=== PATIENT | male | born 1965 | race Caucasian/White ===

== ENCOUNTER 2024-05-03 10:09 | Observation (INO) | payer BC, SELFPAY ==
[2024-05-03] VITALS (8 sets, daily range): BP systolic 111–161; BP diastolic 58–78; PULSE 62–80; RESP 18–24; TEMP 36–36.8; O2SAT 93–98; BMI 35.1
--- NOTE | ~2024-05-03 | CT_ITS ---
EXAMINATION: CTA NECK WITH CONTRAST (STROKE) CTA HEAD WITH CONTRAST (STROKE) CLINICAL INFORMATION: Stroke protocol. COMPARISON: Concurrent CT scan of the head 05/03/2024. TECHNIQUE: Test bolus series followed by intravenous administration 70 mL of Isovue-370. Helical imaging was performed in the axial plane from the mediastinum to the skull vertex. The degree of stenosis is based off NASCET criteria. The data was processed at the mechanical technologist workstation for generation of MIP images. Three-dimensional volume rendered reformatted images were also generated at an offline 3-D workstation. This CT examination was performed using dose optimization techniques as appropriate, variously including the following: *Automated exposure control *Adjustment of mA and/or kV according to patient size (this includes techniques or standardized protocols for targeted exams where dose is matched to indication/reason for exam; i.e. extremities or head) *Use of iterative reconstruction technique DLP: 1389 mGy-cm. FINDINGS: CT Head: There is an area of low-attenuation in the anterior limb of the right internal capsule, demonstrated on the prior study, which may be consistent with an age-indeterminate infarct. No definite abnormal attenuation is seen in the jacquelin. There is no evidence of acute intracranial hemorrhage. No abnormal mass-effect or midline shift is seen. Duncan to white matter differentiation is well preserved. No extra-axial fluid collections are identified. There is no abnormal enhancement. The ventricles and sulci are normal in size. The osseous structures and soft tissues are normal. The mastoid air cells and visualized portions of the paranasal sinuses are well-aerated. CTA Neck: There is a classic configuration of the aortic arch. There are mild atheromatous ossifications of the arch. The origins of the great vessels of the neck are well-demonstrated and are patent. The common carotid arteries are patent with mild atheromatous change. There are mild atheromatous calcifications at the carotid bifurcations bilaterally without flow-limiting stenosis. Both cervical internal carotid arteries are patent. The origins of the vertebral arteries are well-demonstrated. Both vertebral arteries are patent throughout their cervical course extending intradurally. The left vertebral artery is dominant. Nonvascular: The visualized upper lung borrero are well-aerated. The thyroid gland demonstrates an equivocal 6 mm area of low density in the right lobe of the thyroid gland (image 87/111, series 5), which does not need further imaging evaluation. There is no cervical lymphadenopathy. There is no significant spondylosis or facet arthropathy. There are multiple carious teeth in the mandible and the maxilla. The nasal septum is deviated to the left with a prominent left-sided bony nasal septal spur. There is slight increased attenuation in the right malar soft tissues compared to the left, which is nonspecific. CTA Head: There are minimal atheromatous calcifications of the cavernous internal carotid arteries, without significant stenosis. There is a 3.7 mm aneurysm at the anterior communicating artery, extending superiorly (image 291/563, series 502 and image 258/[id number], series 6). The middle and anterior cerebral arteries bilaterally demonstrate normal caliber with no evidence of focal stenosis, aneurysm or vascular malformation. There is normal arborization of the middle cerebral artery branches. In the posterior circulation, the left vertebral artery is dominant. There is slight irregular caliber of the proximal right intradural vertebral artery, but the vessel is patent. The basilar artery appears normal. The posterior cerebral arteries have normal caliber. The venous sinuses opacify normally. CT/CT angio head neck stroke IMPRESSION: 1. There is an area of low-attenuation in the anterior limb of the right internal capsule, which may be consistent with an age-indeterminate infarct. This could be further evaluated with MRI scan of the brain. 2. There is no evidence of acute intracranial hemorrhage. There is no abnormal mass-effect or midline shift. 3. There is no abnormal enhancement. 4. There are mild atheromatous calcifications at the carotid bifurcations without flow-limiting stenosis. 5. There is a 3.7 mm aneurysm extending superiorly off anterior communicating artery. Recommend BERNARDINO or neurosurgical consult. 6. This critical result was discussed with Mauro Pastor by telephone on 05/03/2024 at 11:10 AM and it was ascertained that the content and urgency of the report was understood at the time of direct communication.
--- NOTE | ~2024-05-03 | MR_ITS ---
EXAMINATION: MR BRAIN WITHOUT CONTRAST CLINICAL INFORMATION: Transient ischemic attack versus cerebrovascular accident. COMPARISON: CT angiogram of the head and neck 05/03/2024. TECHNIQUE: MRI of the brain was obtained using routine sequences without contrast. FINDINGS: There are scattered nonspecific foci of T2 FLAIR signal hyperintensity within the periventricular white matter. No acute territorial infarct. No pathological magnetic susceptibility artifact. Intracranial vascular flow voids are maintained. There is no intracranial mass effect or midline shift. No abnormal extra-axial collection. Lateral and third ventricles are normal. No hydrocephalus. Midline structures including the cervicomedullary junction are normal. No acute bone marrow signal changes. There is a small left mastoid tip effusion. Mild paranasal sinus disease primarily affecting the ethmoid air cells. Globes and orbits are symmetric. Although only partially included within the [id number] of this examination there is a nodular lesion located within the superficial lobe of the right parotid gland measuring 1.3 cm in diameter best visualized on axial image of series 4. MR/MR head/brain wo con IMPRESSION: There are a few scattered chronic small vessel ischemic changes within the periventricular white matter. No evidence of acute territorial infarct or hemorrhage. Although only partially included within the [id number] of this examination there is a 1.3 cm nodular lesion located within the superficial lobe of the right parotid gland that may represent a cyst, enlarged intraparotid lymph node, or a primary parotid neoplasm.
--- NOTE | ~2024-05-03 | CT_ITS ---
EXAMINATION: CT HEAD WITHOUT CONTRAST (STROKE PROTOCOL) CLINICAL INFORMATION: Stroke protocol. Left arm and leg numbness and heaviness. COMPARISON: None available. TECHNIQUE: Contiguous axial imaging was performed from the skull base to vertex without intravenous administration of contrast. This CT examination was performed using dose optimization techniques as appropriate, variously including the following: *Automated exposure control *Adjustment of mA and/or kV according to patient size (this includes techniques or standardized protocols for targeted exams where dose is matched to indication/reason for exam; i.e. extremities or head) *Use of iterative reconstruction technique DLP: 607 mGy-cm FINDINGS: No intracranial hemorrhage, extra-axial surface collection, focal mass effect or midline shift. Atherosclerotic calcification of cavernous carotid arteries. The area of hypoattenuation in the deep right frontal white matter involving region of anterior limb of internal capsule could represent an acute or subacute infarction. The cody-white matter differentiation of the brain is maintained. At the posterior fossa, there appears to be a small area of slightly decreased attenuation within the left jacquelin but this might be artifactual. It is difficult to exclude a subtle pontine infarct on this examination. The cerebellar hemispheres are normal. The calvarium is intact. Mild mucosal thickening of the anterior wall of the left sphenoid sinus and opacification of left posterior ethmoid air cell. No air-fluid levels within paranasal sinuses. The visualized portions of the orbits and temporomandibular joints are unremarkable. CT/CT head for stroke IMPRESSION: An area of decreased attenuation involving the anterior limb of the right internal capsule could represent an acute infarction. Also, note that it is difficult to exclude any small left pontine infarction on this examination. There is no intracranial hemorrhage. This critical result was discussed with Traci Pastor at 10:36 AM on 05/03/2024. It was ascertained that the content and urgency of the report was understood at the time of direct communication.
--- NOTE | 2024-05-03 10:19 | ED.NEUROSD ---
HPI - Neuro Symptoms/Deficit General Chief Complaint: Stroke Stated Complaint: L arm numbness Time Seen by Provider: 05/03/24 10:19 Source: patient Mode of arrival: ambulatory Limitations: no limitations History of Present Illness ED Provider: Dr. Mauro Pastor HPI Narrative: 58-year-old male with a history of diabetes mellitus, hypertension, known brain aneurysm who presents emergency department for evaluation of intermittent stroke-like symptoms x2 days. Patient states that yesterday at around 08:00 hours he developed tingling in his and weakness in his left arm and left leg. He states his left arm felt heavy. He states the symptoms lasted approximately 2 minutes. He states that 1 hour later he then developed similar symptoms which again lasted minutes and resolved. This morning he states that around 0 900 hours his symptoms returned and lasted minutes. He then had a 2nd episode at 09:00 hours with left arm and leg tingling this and weakness with a heavy sensation in his left arm. He also felt dizzy and lightheaded therefore he came to the emergency department for evaluation. The patient states that 5 or 6 years prior he did have difficulty with his vision and was seen at [facility]. He had a workup which revealed a an aneurysm in his brain which she states was too small to be repaired. Patient denied being ill in any other way prior to coming to the emergency department. He denied fever, chills, chest pain, shortness of breath, nausea, vomiting or diarrhea. Related Data Allergies Allergy/AdvReac Type Severity Reaction Status Date / Time No Known Allergies Allergy Verified 05/03/24 10:16 Review of Systems Review of Systems: Yes all other systems are reviewed and are negative [facility] Past Medical History [facility] Narrative: Social history: The patient denies tobacco use. He states he does drink on the weekends and that he will drink anywhere from 10-12 alcoholic beverages per day over the weekend. He denies drug use Social History Social History Advance Directives: No Advance Directives Information Provided: No Do you have a plan to hurt others: No Plan Physical Exam Vital Signs: Vital Signs: Last Vital Signs Temp 98 F 05/03/24 10:14 Pulse 72 05/03/24 10:55 Resp 24 H 05/03/24 10:55 BP 111/60 05/03/24 10:55 Pulse Ox 96 05/03/24 10:55 O2 Del Method Room Air 05/03/24 10:55 BMI result Body Mass Index 35.1 Vital signs revealed an elevated respiratory rate of 20 Exam: General: Awake, alert in no distress Head: Normocephalic, atraumatic EENT: PERRL, Lids normal, sclera normal, conjunctiva normal, nose normal , ears normal, throat without erythema or exudates Neck: Supple, no adenopathy Lung: breath sounds symmetric, no wheezing, rales or rhonchi Chest: symmetric movement, nontender Heart: regular rate and rhythm, normal S1, S2 no murmurs or rubs Abdomen: soft, non-tender, nondistended, normal bowel sounds Back: no vertebral tenderness, no CVAT Extremities: no deformities, moves all extremities symmetrically Neuro: Awake, alert, oriented, normal speech, cranial nerves intact, moves all extremities symmetrically Psych: Pleasant, cooperative Medications Administered Discontinued Medications Generic Name Dose Route Start Last Admin Trade Name Freq PRN Reason Stop Dose Admin Iohexol 100 ml 05/03/24 10:40 05/03/24 10:41 Iohexol 350 Mg/Ml 100 Ml Infus..Btl IV 05/03/24 10:41 70 ml ONCE ONE Administration Medical Decision Making Medical Decision Making MDM Narrative: 58-year-old male with a history of diabetes mellitus, hypertension, known brain aneurysm who presents emergency department for evaluation of intermittent stroke-like symptoms x2 days. Patient had 2 brief episodes yesterday at 08:00 hours of left arm and leg numbness with heaviness in the left arm. He also had 2 episodes today at 09:00 hours which were again brief and then resolved completely. Patient's physical examination was unremarkable in his NIH stroke scale was 0. Differential diagnosis: ?Includes but is not limited to intracerebral bleed, stroke, TIA, complex migraine, electrolyte abnormalities, anemia Following evaluation was ordered: Stroke protocol Course: 11:39 My interpretation patient's laboratory evaluation as follows: Elevated white blood count 15,000 normocytic anemia with an H&H of 11.6 and 34.1. Platelet count was normal 369,000. Stroke INR was 1.1. Potassium elevated 5.3 CO2 low 19 BUN creatinine elevated 35 and 1.77-no old values for comparison. Glucose 126. Lipid profile revealed elevated triglycerides 245, elevated cholesterol 212, elevated LDL [address] scan of the head revealed decreased attenuation involving the anterior limb of the right internal capsule which could represent an acute versus subacute infarct. CT angiogram of the head and neck did not reveal any critical stenosis, large vessel occlusions, or acute intracranial hemorrhage. There was a 3.7 mm aneurysm of the anterior communicating artery. I did discuss this finding with the neuroradiologist and he stated the aneurysms usually less than 5 mm and not repaired however would be important that the patient gets neurosurgical follow-up to discuss this finding. I did discuss the patient's presentation with our covering neurologist, Dr. An who recommended that the patient be admitted to the hospitalist service for further evaluation for possible acute stroke. I did order aspirin 162 mg orally. I did discuss the patient's presentation over tiger text with the covering hospitalist, Dr. Montes De Oca patient will be admitted for further management. Admission/Observation Consideration of admission/observation: Escalation of care including admission/observation considered Lab Data 05/03/24 10:22 05/03/24 10:22 Labs: Lab Results 05/03/24 05/03/24 Range/Units 10:22 10:23 WBC 15.0 H (4.8-10.8) X10*3/uL RBC 4.26 L (4.60-5.80) X10*6/uL Hgb 11.6 L (14.0-18.0) g/dl Hct 34.1 L (42.0-52.0) % MCV 80.0 (80.0-98.0) fL MCH 27.2 (27.0-33.0) pg MCHC 34.0 (31.0-36.0) g/dl RDW 15.4 (11.0-16.0) % Plt Count 369 (160-400) X10*3/uL MPV 9.3 L (9.4-12.4) fL Immature Gran % (Auto) 0.9 H (0.0-0.4) % Neut % (Auto) 81.1 H (45-73) % Lymph % (Auto) 10.4 L (20-40) % [place] % (Auto) 6.9 (2-11) % Eos % (Auto) 0.4 (0-4) % Baso % (Auto) 0.3 (0-2) % Lymph # (Auto) 1.6 (1.2-4.9) X10*3/uL [place] # (Auto) 1.0 (0.1-1.2) X10*3/uL Eos # (Auto) 0.1 (0.0-0.4) X10*3/uL Baso # (Auto) 0.1 (0.0-0.2) X10*3/uL Abs Immat Gran (auto) 0.14 H (0.00-0.03) X10*3/uL Absolute Neuts (auto) 12.1 H (2.0-8.3) x10*3/uL Absolute Nucleated RBC 0.000 (0.0-0.012) X10*3/uL Nucleated RBC % (auto) 0.0 (0.0-0.2) /100WBC PT 12.0 (11.1-13.3) SEC INR 1.0 (0.9-1.1) APTT 30.8 (26.0-36.8) SEC Sodium 135 (135-145) mmol/L Potassium 5.3 H (3.3-5.1) mmol/L Chloride 105 (96-108) mmol/L Carbon Dioxide 19 L (22-29) mmol/L Anion Gap 16 (12-20) BUN 35 H (9-16) mg/dL Creatinine 1.77 H (0.5-1.4) mg/dL Estim Creat Clear Calc 45.1 Estimated GFR 40 POC Glucose 126 H (60-115) mg/dL Random Glucose 118 H (60-115) mg/dL Calcium 9.3 (8.4-10.2) mg/dL Total Bilirubin 0.3 (0.0-1.0) mg/dL Direct Bilirubin 0.1 (0.0-0.5) mg/dL AST 15 (5-37) U/L ALT 16 (0-40) U/L Alkaline Phosphatase 119 H (39-117) U/L Troponin I High Sens 3.2 (<3.5-35.0) ng/L Total Protein 7.8 (6.5-8.0) g/dL Albumin 4.2 (3.5-5.0) g/dL Triglycerides 245 H (<150) mg/dL Cholesterol 212 H (<200) mg/dL LDL Cholesterol, Calc 129 H (<100) mg/dL HDL Cholesterol 34 L (>40) mg/dL Ethyl Alcohol < 10 mg/dL Radiology Impression Discussion of test interpretation with radiology: I have reviewed the radiologist's reading. Radiologist Impression: CT head for stroke IMPRESSION: An area of decreased attenuation involving the anterior limb of the right internal capsule could represent an acute infarction. Also, note that it is difficult to exclude any small left pontine infarction on this examination. There is no intracranial hemorrhage. This critical result was discussed with Traci Pastor at 10:36 AM on 05/03/2024. It was ascertained that the content and urgency of the report was understood at the time of direct communication. Dictated By: Ron Childs MD CT angio head neck stroke IMPRESSION: 1. There is an area of low-attenuation in the anterior limb of the right internal capsule, which may be consistent with an age-indeterminate infarct. This could be further evaluated with MRI scan of the brain. 2. There is no evidence of acute intracranial hemorrhage. There is no abnormal mass-effect or midline shift. 3. There is no abnormal enhancement. 4. There are mild atheromatous calcifications at the carotid bifurcations without flow-limiting stenosis. 5. There is a 3.7 mm aneurysm extending superiorly off anterior communicating artery. Recommend BERNARDINO or neurosurgical consult. 6. This critical result was discussed with Mauro Pastor by telephone on 05/03/2024 at 11:10 AM and it was ascertained that the content and urgency of the report was understood at the time of direct communication. Dictated By: ANGEL LUIS RYAN MD NIH Stroke Scale Internal: Initial- Upon Arrival Level of Consciousness: Alert Level of Consciousness Questions: Answers both questions correctly Level of Consciousness Commands: Performs both tasks correctly Best Gaze: Normal Visual: No visual loss Facial Palsy: Normal Motor Arm (Right): No drift Motor Arm (Left): No drift Motor Leg (Right): No drift Motor Leg (Left): No drift Limb Ataxia: Absent Sensory: Normal Best Language: No aphasia Dysarthia: Normal Extinction and Inattention: No abnormality Score: 0 Critical Care Time Critical Care Time Critical Care Time: Yes Total Critical Care Time: 45 Attestation: Critical Care: The patient was critically ill with a high probability of imminent or life threatening deterioration. I spent greater than 30 minutes of discontinuous time evaluating the patient,delivering critical care at the bedside, discussing and evaluating pertinent data with consultants. Critical care time does not include time spent performing separately billable procedures or teaching. Total time spent performing critical care was 45 minutes. Discharge Plan Discharge Print Language: Cuban
--- NOTE | 2024-05-03 10:20 | ECG_ITS ---
Test Reason : weakness Blood Pressure : / mmHG Vent. Rate : 078 BPM Atrial Rate : 078 BPM P-R Int : 232 ms QRS Dur : 058 ms QT Int : 332 ms P-R-T Axes : -05 008 -11 degrees QTc Int : 378 ms Artifact in tracing Sinus rhythm with 1st degree A-V block Abnormal ECG When compared with ECG of 09-MAR-2010 18:12, ND interval has increased Nonspecific ST and T wave abnormality improved Referred By: Mauro Pastor Electronically Signed By:KG BOWLES
[2024-05-03 10:26] LABS: Glucose, Whole Blood 126 mg/dL (60-115)
[2024-05-03 10:32] LABS: MANUAL DIFF FLAG NO
[2024-05-03 10:33] LABS: Basophils Absolute Auto 0.1 X10*3/uL (0.0-0.2); Basophils Percent Auto 0.3 % (0-2); Eosinophils Absolute Auto 0.1 X10*3/uL (0.0-0.4); Eosinophils Percent Auto 0.4 % (0-4); Hematocrit 34.1 % (42.0-52.0); Hemoglobin 11.6 g/dl (14.0-18.0); Imm Gran Abs Auto 0.14 X10*3/uL (0.00-0.03); Imm Gran Pct Auto 0.9 % (0.0-0.4); Lymphocytes Absolute Auto 1.6 X10*3/uL (1.2-4.9); Lymphocytes Percent Auto 10.4 % (20-40); Mean Corpuscular Hemoglobin 27.2 pg (27.0-33.0); Mean Platelet Volume 9.3 fL (9.4-12.4); Monocytes Percent Auto 6.9 % (2-11); Neutrophils Absolute Auto 12.1 x10*3/uL (2.0-8.3); Neutrophils Percent Auto 81.1 % (45-73); Platelet Count 369 X10*3/uL (160-400); Red Blood Count 4.26 X10*6/uL (4.60-5.80); Red Cell Distribution Width 15.4 % (11.0-16.0)
[2024-05-03] MEDS: iohexoL 350 MG/ML 100 ML INFUS..BTL IV (10:41)
[2024-05-03 10:44] LABS: Partial Thromboplastin Time 30.8 SEC (26.0-36.8)
--- NOTE | 2024-05-03 10:47 | PC.NURSE ---
patient presents to the ED after having left sided weakness multiple times since yesterday, states it only lasts a few seconds at a time, patient neuros intact, pupils perrla. IV placed in the left AC #20, labs drawn and sent.
[2024-05-03 10:52] LABS: Stroke Lab Use COMPLETE
[2024-05-03 11:04] LABS: Alanine Aminotransferase 16 U/L (0-40); Albumin Level 4.2 g/dL (3.5-5.0); Alkaline Phosphatase 119 U/L (39-117); Anion Gap 16 (12-20); Aspartate Amino Transferase 15 U/L (5-37); Bilirubin Direct 0.1 mg/dL (0.0-0.5); Bilirubin Total 0.3 mg/dL (0.0-1.0); Blood Urea Nitrogen 35 mg/dL (9-16); Calcium 9.3 mg/dL (8.4-10.2); Carbon Dioxide 19 mmol/L (22-29); Chloride 105 mmol/L (96-108); Cholesterol 212 mg/dL (<200); Creatinine Clr Calc Pharmacy 45.1; Estimated Glomerular Filt Rate 40; Ethanol < 10 mg/dL; Glucose Random 118 mg/dL (60-115); HDL Cholesterol 34 mg/dL (>40); LDL Cholesterol Calculated 129 mg/dL (<100); Potassium 5.3 mmol/L (3.3-5.1); Sodium 135 mmol/L (135-145); Total Protein 7.8 g/dL (6.5-8.0); Triglycerides 245 mg/dL (<150); Troponin-I High Sensitivity 3.2 ng/L (<3.5-35.0)
--- NOTE | 2024-05-03 11:48 | MHC.STROKE ---
Met with patient after he completed his CT scans. Pt awake, alert and oriented. Answering questions appropriately and following commands. Speech clear. Equal strength to arms/legs bilaterally. Tongue midline. No facial droop noted. Good sensation to all extremities. Pupils reactive- pt reports hx of cataracts. Pt reports that his symptoms have been coming and going for approximately 2 days. Yesterday at 0800 pt reports left foot numbness that traveled into his leg and arm. He reports these symptoms lasted less than 1 minute. He states that he experienced the same symptoms again around 1200. No other symptoms throughout the day and states that he went to bed at approximately 1930 feeling well. Pt states that he was up at 0400 today. At approximately 0730 the symptoms returned and again lasted for a very brief time. At 0830 when the symptoms again returned, the patient reports also feeling dizzy. He was at work at this time and decided that he needed to see a doctor. Pt denies any recent illness. Plan of care discussed with patient. Stroke Education pamphlet provided. All questions answered. Will continue to assist as needed. Dr. An spoke with ED provider regarding this case.
[2024-05-03] MEDS: Aspirin 81 MG TAB.CHEW 162 MG PO (11:55)
[2024-05-03] MEDS: 0.9 % Sodium Chloride 1,000 ML 999 ML IV (11:55)
--- NOTE | 2024-05-03 12:25 | PM.IMHP ---
History of Present Illness Date of Service: 05/03/24 Attending physician on admission: Too Thompson Chief Complaint: Intermittent left-sided weakness and heaviness Pt is a 58-year-old male with a PMH significant for?HTN, insulin-dependent type 2 diabetes with neuropathy, known aneurysm, CVA in 2019, hx of diabetic foot ulcers s/p left great toe amputation in 10/2023, and right midfoot fusion who presents to the ED with?intermittent stroke-like symptoms for the past 2 days. Patient reports yesterday morning experienced numbness and tingling in his left arm and leg that lasted less than 30 seconds. In the afternoon symptoms returned and lasted slightly longer, maybe 30-45 seconds. Patient reports he was able to ?walk it off?. Experienced another episode of left-sided numbness and tingling at work this morning at 07:30 that lasted approximately 30 seconds. At 08:30 left-sided numbness and weakness returned and was accompanied by lightheadedness, dizziness, and left-sided weakness and heaviness. Patient called his PCP who told him to come to the ED for further evaluation. Patient denies any other acute medical complaints. No headache or acute vision changes. Denies dysarthria, word finding, or facial droop. Denies chest pain/pressure, palpitations. No shortness a breath or difficulty breathing. Denies fever, chills, nausea, vomiting, abdominal pain. No recent illnesses. In the ED pt's vital signs largely stable and WNL, though with 1 episode of tachypnea of 24 and initially hypertensive at 161/78. Labs were significant for leukocytosis of 15.0, H&H 11.6/34.1, potassium 5.3, BUN 35, creatinine 1.71, and mildly elevated cholesterol levels. CT?of head an area of decreased attenuation involving the anterior limb of the right internal capsule could represent an acute infarction, but no intracranial hemorrhage. Also noted that it was difficult to exclude any small left pontine infarction. 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 EKG demonstrated sinus rhythm with first-degree AV block without evidence of significant ST elevations or depressions. Pt was treated with 1 L IVF and aspirin. Pt will be admitted to the hospital for treatment and further evaluation of intermittent left-sided deficits concerning for TIA versus CVA. Review of Systems Review of Systems: Left-sided numbness and tingling x4 episodes over past 2 days Left-sided weakness and heaviness x1 episode Lightheadedness, dizziness Denies headache, acute vision changes No dysarthria, difficulty word finding, or facial droop noted Denies chest pain/pressure, palpitations No shortness a breath or difficulty breathing Denies fever, chills, nausea, vomiting, abdominal pain [facility] Medical History (Updated 05/03/24 @ 13:37 by NURY Botello) Amputation of left great toe Diabetic foot ulcers Diabetic neuropathy Insulin dependent type 2 diabetes mellitus CVA (cerebral vascular accident) HTN (hypertension) Social History Advance Directives: No Advance Directives Information Provided: No Do you have a plan to hurt others: No Plan Meds Allergies Allergy/AdvReac Type Severity Reaction Status Date / Time No Known Allergies Allergy Verified 05/03/24 10:16 Active Medications: Current Medications Sodium Chloride (Ns) 1,000 mls @ 999 mls/hr IV .Q1H1M STA Stop: 05/03/24 12:46 Last Admin: 05/03/24 11:55 Dose: 999 mls/hr Home Medications ?Medication ?Instructions ?Recorded ?Confirmed ?Last Taken ?Type amlodipine 10 mg tablet 10 mg PO DAILY 05/03/24 05/03/24 Unknown History dulaglutide 1.5 mg/0.5 mL 1.5 mg subcut SA 05/03/24 05/03/24 Unknown History subcutaneous pen injector (Trulicity) hydrochlorothiazide 25 mg tablet 25 mg PO DAILY 05/03/24 05/03/24 Unknown History insulin glargine-yfgn 100 unit/mL 71 unit subcut BEDTIME 05/03/24 05/03/24 Unknown History (3 mL) subcutaneous pen (Semglee (insulin glargine-yfgn) Pen) lisinopril 30 mg tablet 30 mg PO DAILY 05/03/24 05/03/24 Unknown History metoprolol succinate 25 mg 25 mg PO DAILY 05/03/24 05/03/24 Unknown History tablet,extended release 24 hr omeprazole 20 mg capsule,delayed 20 mg PO DAILY@0630 05/03/24 05/03/24 Unknown History release spironolactone 50 mg tablet 50 mg PO DAILY 05/03/24 05/03/24 Unknown History Physical Exam Vital Signs and Narrative: Vital Signs: Last Vital Signs Temp 98.1 F 05/03/24 12:19 Pulse 69 05/03/24 12:19 Resp 20 05/03/24 12:19 BP 124/65 05/03/24 12:19 Pulse Ox 95 05/03/24 12:19 O2 Del Method Room Air 05/03/24 12:19 BMI result Body Mass Index 35.1 Constitutional: Alert, in no acute distress. Mental Status: Oriented to person, place and time. Eyes: Pupils are equal, round, and reactive to light. Ear, Nose, and Throat: Oropharynx clear, mucous membranes moist. Ears and nose without deformities. Trachea midline. Poor dentition. Respiratory: Clear to auscultation bilaterally. No wheezing, rales, or rhonchi. Cardiovascular: S1, S2 regular. No murmurs, rubs, or gallops. Gastrointestinal: Abdomen soft, non-tender, non-distended. Normal bowel sounds. Neurologic: Cranial nerves II-XII are grossly intact bilaterally. No focal neurological deficits. Moves all extremities spontaneously. Strength preserved and symmetrical of upper and lower extremities bilaterally. Sensation to light touch intact of face and upper and lower extremities bilaterally. Skin: Warm, dry. Extremities: No edema. Psychiatric: Normal mood and affect. Results Labs 05/03/24 10:22 05/03/24 10:22 Labs: Laboratory Results - last 24 hr 05/03/24 05/03/24 10:22 10:23 MCV 80.0 MCH 27.2 MCHC 34.0 RDW 15.4 Plt Count 369 MPV 9.3 L Immature Gran % (Auto) 0.9 H Neut % (Auto) 81.1 H Lymph % (Auto) 10.4 L [place] % (Auto) 6.9 Eos % (Auto) 0.4 Baso % (Auto) 0.3 Lymph # (Auto) 1.6 [place] # (Auto) 1.0 Eos # (Auto) 0.1 Baso # (Auto) 0.1 Abs Immat Gran (auto) 0.14 H Absolute Neuts (auto) 12.1 H Absolute Nucleated RBC 0.000 Nucleated RBC % (auto) 0.0 PT 12.0 INR 1.0 APTT 30.8 Anion Gap 16 Estim Creat Clear Calc 45.1 Estimated GFR 40 POC Glucose 126 H Random Glucose 118 H Calcium 9.3 Total Bilirubin 0.3 Direct Bilirubin 0.1 AST 15 ALT 16 Alkaline Phosphatase 119 H Troponin I High Sens 3.2 Total Protein 7.8 Albumin 4.2 Triglycerides 245 H Cholesterol 212 H LDL Cholesterol, Calc 129 H HDL Cholesterol 34 L Ethyl Alcohol < 10 Imaging Radiologist's Impressions: Impressions Head CT 05/03/24 10:23 IMPRESSION: An area of decreased attenuation involving the anterior limb of the right internal capsule could represent an acute infarction. Also, note that it is difficult to exclude any small left pontine infarction on this examination. There is no intracranial hemorrhage. This critical result was discussed with Traci Pastor at 10:36 AM on 05/03/2024. It was ascertained that the content and urgency of the report was understood at the time of direct communication. Head/Neck CTA 05/03/24 10:33 IMPRESSION: 1. There is an area of low-attenuation in the anterior limb of the right internal capsule, which may be consistent with an age-indeterminate infarct. This could be further evaluated with MRI scan of the brain. 2. There is no evidence of acute intracranial hemorrhage. There is no abnormal mass-effect or midline shift. 3. There is no abnormal enhancement. 4. There are mild atheromatous calcifications at the carotid bifurcations without flow-limiting stenosis. 5. There is a 3.7 mm aneurysm extending superiorly off anterior communicating artery. Recommend BERNARDINO or neurosurgical consult. 6. This critical result was discussed with Mauro Pastor by telephone on 05/03/2024 at 11:10 AM and it was ascertained that the content and urgency of the report was understood at the time of direct communication. Assessment and Plan (1) Left sided numbness: Status: Acute Plan Pt is a 58-year-old male with a PMH significant for?HTN, insulin-dependent type 2 diabetes with neuropathy, known aneurysm, CVA in 2019, hx of diabetic foot ulcers s/p left great toe amputation in 10/2023, and right midfoot fusion who presents to the ED with?intermittent stroke-like symptoms for the past 2 days. Pt will be admitted to the hospital for treatment and further evaluation of intermittent left-sided deficits concerning for TIA versus CVA. Left-sided deficits Pt with four brief episodes of left-sided numbness and tingling x2 days Last episode lasted 1-2 minutes, also included lightheadedness, dizziness, left-sided weakness and heaviness Patient currently back to baseline without focal deficits noted CT of head with area of decreased attenuation of right internal capsule possibly representing acute infarction CTA of head/neck negative Will get MRI of head/brain Patient given aspirin in the ED, will start on aspirin 81 mg daily and atorvastatin 40 mg daily Lipid panel Echocardiogram with bubble study PT/OT evaluation Neurology consult Monitor on telemetry Elevated creatinine BUN 35 with creatinine 1.77 No other labs to compare, baseline unknown CKD 3 versus PAGE Patient received 1 L IVF in the ED Follow BMP Leukocytosis WBCs 15.0 at time of presentation Likely reactionary No clear source of infection, denies fever, chills, nausea, vomiting, diarrhea, abdominal pain No sepsis, no indication for antibiotics at this time Follow CBC Elevated potassium Potassium elevated at 5.3 at time of presentation Likely secondary to spironolactone Will hold spironolactone Follow BMP Brain aneurysm CTA showed 3.7 mm aneurysm Follow up outpatient with Neurosurgery HTN Patient on amlodipine, hydrochlorothiazide, lisinopril, metoprolol, and spironolactone Will hold antihypertensives for now due to permissive hypertension Resume as warranted Insulin-dependent type [address] on sliding scale insulin, Lantus Diabetic diet Full Code Attending:?Dr. Thompson DVT Prophylaxis: Lovenox Patient will be admitted to the hospital under observation for treatment and further evaluation left-sided deficits now resolved, concerning for TIA versus CVA. Quality Stroke Does the patient have a stroke diagnosis?: No VTE Prior VTE?: No VTE Risk Level:: Medical - moderate - high VTE Device Contraindication: Treatment Not Indicated VTE Drug Contraindication: N/A - Med Ordered
--- NOTE | 2024-05-03 13:38 | PHA.MEDREC ---
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 Original Note: Pharmacy Consult ? Medication Reconciliation Pharmacy has completed the medication reconciliation. Spoke to patient to confirm med list. Patient confirm he takes Trulicity 1.5 mg every Wednesday, 71 units at bedtime. Patient states he is missing a medication from the list, but he doesn't remember the name and his will be home after 3:30. will have rn night follow up.
[2024-05-03] MEDS: Atorvastatin Calcium 40 MG TABLET PO (13:53)
[2024-05-03] MEDS: Enoxaparin Sodium 40 MG/0.4 ML SYRINGE SUBCUT (13:53)
[2024-05-03 14:57] LABS: Prothrombin Time Whole Bld POC 12.8 sec (11.1-13.5); ~PT, ~INR - Anti Coag Clinic 1.1 (0.9-1.1)
[2024-05-03] MEDS: LORazepam 2 MG/ML VIAL 1 MG IVPUSH (15:16)
--- NOTE | 2024-05-03 16:00 | CA_ITS ---
Transthoracic Echocardiogram Patient (Last, First, Middle): Gunnar Harry A Gender: Male Date of : 1965 Age: 58 Procedure Date: 05/03/2024 Procedure Type: Transthoracic Echocardiogram Location: [facility] Height: 160.02 cm Weight: 85.28 kg BSA: 1.88 m2 Heart Rate: bpm BP: 124 / 65 mmHg Pizza Maker: Referring MD: Bigg ARRINGTON Symptoms: Left-sided deficits, ?TIA vs CVA Study Quality: Adequate ECG Rhythm: Sinus Conclusions: - The left ventricular systolic function is normal. The calculated ejection fraction is 66% by biplane method. - The basal inferior segment is hypokinetic. - No obvious valvular pathology seen on this study. - There is no evidence of interatrial shunt by agitated saline. Findings Left Ventricle Normal left ventricular cavity size. There is normal left ventricular wall thickness. The left ventricular systolic function is normal. The calculated ejection fraction is 66% by biplane method. There is no evidence of regional wall motion abnormalities. Diastolic function is normal for age. Wall Motion Rest Echo Findings The basal inferior segment is hypokinetic. Right Ventricle Mildly increased right ventricular cavity size. There is normal right ventricular systolic function. Atria Both atria are normal in size. There is no evidence of interatrial shunt by agitated saline. Bubble study negative with rest and valsalva. Aortic Valve There is a normal trileaflet aortic valve. There is no aortic valve stenosis. There is no aortic valve regurgitation. Mitral Valve The mitral valve appears normal. There is no mitral valve regurgitation. There is no mitral valve stenosis. Pulmonic Valve The pulmonic valve is likely normal. Tricuspid Valve Normal tricuspid valve structure. There is trace tricuspid valve regurgitation. There is no evidence of pulmonary hypertension. Great Vessels The asc aorta is normal in size. Small plaque is seen in the sino tubular ridge. Venous The inferior vena cava is normal in size and collapses greater than 50% with inspiration. Pericardium/Pleural There is no evidence of pericardial effusion. Prior Study Comparison No prior study available for comparison. Recommendations, Care & Conclusions No obvious valvular pathology seen on this study. Measurements 2D Linear Measurements IVSd: 1.28 0.6-0.9/0.6-1.0 cm LVIDd: 4.31 3.9-5.3/4.2-5.9 cm LVIDd Index: 2.29 2.4-3.2/2.2-3.1 cm/m2 LVIDs: 2.33 2.0-3.6 cm LVPWd: 1.31 0.7-1.1 cm Ao Root: 3.00 2.1-3.5 cm LA Diam: 4.30 2.7-3.8/3.0-4.0 cm LAIDs Index: 2.29 1.5-2.3 cm/m2 LV Mass: 258.38 67-162/88-224 g LV Mass Index: 137.44 43-95/49-115 g/m2 LVOT Diam: 2.20 3.0+(-)1.3 cm 2D Systolic Function EF 4C: 60.90 >55% EF 2C: 69.20 >55% EF BiP: 65.60 >55% Mitral Valve MV Pk E: 0.92 MV PK A: 0.62 MV Decel Time: 193.00 E/A: 1.50 E'Lateral: 13.20 E'Medial: 9.03 E/E' Med: 10.20 E/E' Lat: 7.00 PHT: 56.00 MVA PHT: 3.93 Decel [place]rara: 4.76 Aortic Valve AoV Pk Reza: 1.58 AoV Mn Reza: 0.95 AoV VTI: 0.35 AoV Pk Grad: 10.00 Aov Mn Grad: 5.00 FELIZ Cont.VTI: 2.92 LVOT LVOT Pk Reza: 1.28 LVOT Mn Reza: 0.79 LVOT VTI: 0.27 LVOT Pk Grad: 7.00 LVOT Mn Grad: 3.00 LVOT Diam: 2.20 LVOT Area: 3.80 Diastolic Function MV Pk E: 0.92 MV Pk A: 0.62 E/A: 1.50 E'Medial: 9.03 E/E' Med: 10.20 E' Laterial: 13.20 E/E' Lat: 7.00 Right Ventricle TAPSE (mm): 24.00 TVS' Reza: 11.00 Tricuspid Valve TR Pk Reza: 2.41 TR Pk Grad: 23.00 RA Press: 3.00 RVSP: 26.00 Great Vessels Aorta Ao Root-2D: 3.00 2.0-3.7 cm Ao Asc: 3.40 2.1-3.4 cm Pulmonary Valve PV Pk Reza: 1.15 Peak PV Grad: 5.00 Updated in Other Vendor System with Status of Final Shahram Tesfaye MD electronically signed on 05/04/2024 9:05:23 AM with status of Final
--- NOTE | 2024-05-03 17:06 | P.CNNE_ITS ---
History of Present Illness Data of Consult Service Date: 05/03/24 Primary Care Provider: Sarah Peterson NP HPI Reason for consult: ?TIA This is a 58-year-old male with a PMH of?HTN, insulin-dependent type 2 diabetesx 6 yrs with neuropathy, known JULIUS aneurysm, CVA in 2019, hx of diabetic foot ulcers s/p left great toe amputation in 10/2023, and right midfoot fusion who presents to the ED with?intermittent stroke-like symptoms for the past 2 days. Patient reports 2 episodes yesterday morning of 30 secs duration with numbness and tingling in his left arm. Patient reports he was able to ?walk it off?. Experienced another episode of left-sided numbness and tingling at work this morning at 07:30 that lasted approximately 30 seconds. At 08:30 left-sided numbness and weakness returned and was accompanied by lightheadedness, dizziness, and left-sided weakness and heaviness. Patient called his PCP who told him to come to the ED for further evaluation. Patient denies any other acute medical complaints. No headache or acute vision changes. Denies dysarthria, word finding, or facial droop. Denies chest pain/pressure, palpitations. No shortness a breath or difficulty breathing. vital signs stable and WNL, Labs were significant for leukocytosis of 15.0, H&H 11.6/34.1, potassium 5.3, BUN 35, creatinine 1.71, and mildly elevated cholesterol levels. 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 MRI shows no acute stroke. Mild microvascular changes. PENDING SALE TO [facility] Past Medical History Medical History Amputation of left great toe Diabetic foot ulcers Diabetic neuropathy Insulin dependent type 2 diabetes mellitus CVA (cerebral vascular accident) HTN (hypertension) Meds Allergies Allergy/AdvReac Type Severity Reaction Status Date / Time No Known Allergies Allergy Verified 05/03/24 10:16 Active Medications: Current Medications Acetaminophen (Acetaminophen 325 Mg Tablet) 650 mg PO Q6H PRN PRN Reason: Pain, Mild (Pain Scale 1-3), fever or headache Aspirin (Aspirin Enteric Coated 81 Mg Tablet.) 81 mg PO DAILY [facility] Atorvastatin Calcium (Atorvastatin Calcium 40 Mg Tablet) 40 mg PO DAILY [facility] Last Admin: 05/03/24 13:53 Dose: 40 mg Benzonatate (Benzonatate 100 Mg Capsule) 100 mg PO TID PRN PRN Reason: Cough Calcium Carbonate (Calcium Carbonate 750 Mg Tab.Chew) 750 mg PO Q4H PRN PRN Reason: Heartburn Enoxaparin Sodium (Enoxaparin Sodium 40 Mg/0.4 Ml Syringe) 40 mg SUBCUT Q24H [facility] Last Admin: 05/03/24 13:53 Dose: 40 mg Glucose (Glucose Gel 15 Gm Gel..Gram.) 15 gm PO Q15M PRN; Protocol PRN Reason: per Hypoglycemia Standing Ord. Dextrose (D10) 250 mls @ 750 mls/hr IV Q15M PRN; Protocol PRN Reason: per Hypoglycemia Standing Ord. Insulin Glargine (Insulin Glargine,Hum.Rec.Anlog 100 Unit/Ml 10 Ml Vial) 50 unit SUBCUT DAILY [facility] Insulin Human Lispro (Insulin Lispro 100 Unit/Ml 3 Ml Vial) 0 unit SUBCUT QIDACHS [facility]; Protocol Magnesium Hydroxide (Milk Of Magnesia 30 Ml Oral.Susp) 30 ml PO DAILY PRN PRN Reason: Constipation Melatonin (Melatonin 3 Mg Tablet) 6 mg PO BEDTIME PRN PRN Reason: Insomnia Omeprazole (Omeprazole 20 Mg Capsule.Dr) 20 mg PO DAILY@0630 [facility] Ondansetron HCl (Ondansetron Hcl 4 Mg/2 Ml Vial) 4 mg IVPUSH Q8H PRN PRN Reason: Nausea and Vomiting Sodium Chloride (0.9 % Sodium Chloride Flush 3 Ml Syringe) [facility] Medications ?Medication ?Instructions ?Recorded ?Confirmed ?Last Taken ?Type amlodipine 10 mg tablet 10 mg PO DAILY 05/03/24 05/03/24 Unknown History dulaglutide 1.5 mg/0.5 mL 1.5 mg subcut SA 05/03/24 05/03/24 Unknown History [facility] ([facility]) hydrochlorothiazide 25 mg tablet 25 mg PO DAILY 05/03/24 05/03/24 Unknown History insulin glargine-yfgn 100 unit/mL 71 unit subcut BEDTIME 05/03/24 05/03/24 Unknown History (3 mL) subcutaneous pen (Semglee (insulin glargine-yfgn) Pen) lisinopril 30 mg tablet 30 mg PO DAILY 05/03/24 05/03/24 Unknown History metoprolol succinate 25 mg 25 mg PO DAILY 05/03/24 05/03/24 Unknown History tablet,extended release 24 hr omeprazole 20 mg capsule,delayed 20 mg PO DAILY@0630 05/03/24 05/03/24 Unknown History release spironolactone 50 mg tablet 50 mg PO DAILY 05/03/24 05/03/24 Unknown History Physical Exam 2 Vital Signs: Vital Signs: Last Vital Signs Temp 97.7 F 05/03/24 14:02 Pulse 69 05/03/24 14:02 Resp 20 05/03/24 14:02 BP 119/74 05/03/24 14:02 Pulse Ox 93 05/03/24 14:02 O2 Del Method Room Air 05/03/24 14:02 BMI result Body Mass Index 35.1 Neuro: Other: He is alert and oriented, normal intellectual functions. Cranial nerves II through XII are normal. Muscle tone and strength normal in all 4 extremities. He is areflexic in the lower extremities with bilateral a great toe amputation. No sensory deficits. Results Labs 05/03/24 10:22 05/03/24 10:22 Labs: Short CBC 05/03/24 Range/Units 10:22 WBC 15.0 H (4.8-10.8) X10*3/uL Hgb 11.6 L (14.0-18.0) g/dl Hct 34.1 L (42.0-52.0) % Plt Count 369 (160-400) X10*3/uL BMP 05/03/24 10:22 Sodium 135 Potassium 5.3 H Chloride 105 Carbon Dioxide 19 L BUN 35 H Creatinine 1.77 H Calcium 9.3 Liver Function 05/03/24 Range/Units 10:22 Total Bilirubin 0.3 (0.0-1.0) mg/dL Direct Bilirubin 0.1 (0.0-0.5) mg/dL AST 15 (5-37) U/L ALT 16 (0-40) U/L Alkaline Phosphatase 119 H (39-117) U/L Albumin 4.2 (3.5-5.0) g/dL Assessment and Plan (1) Left sided numbness: Status: Acute For brief episodes of left-sided numbness and tingling in the upper and lower extremity consistent with the diagnoses of sensory TIA from microvascular disease. No evidence of for significant vascular disease on CTA of the head and neck then no evidence of acute infarct or inappropriate lesion that would account for this problem microvascular aspect. Recommendation aspirin 81 mg a day control of blood pressure and sugar. Procedures Date of Service Date of Service: 05/03/24
[2024-05-03 17:08] LABS: Glucose, Whole Blood 116 mg/dL (60-115)
[2024-05-03 19:55] LABS: Glucose, Whole Blood 99 mg/dL (60-115)
[2024-05-04 03:30] VITALS: BP 113/55; PULSE 67; RESP 18; TEMP 36.1; O2SAT 97
[2024-05-04] MEDS: Omeprazole 20 MG CAPSULE.DR PO (06:09)
[2024-05-04 06:50] LABS: Hematocrit 34.7 % (42.0-52.0); Hemoglobin 11.3 g/dl (14.0-18.0); Mean Corpuscular HGB Conc 32.6 g/dl (31.0-36.0); Mean Corpuscular Hemoglobin 26.5 pg (27.0-33.0); Mean Corpuscular Volume 81.5 fL (80.0-98.0); Mean Platelet Volume 9.5 fL (9.4-12.4); Platelet Count 329 X10*3/uL (160-400); Red Blood Count 4.26 X10*6/uL (4.60-5.80); Red Cell Distribution Width 15.3 % (11.0-16.0); White Blood Count 10.1 X10*3/uL (4.8-10.8)
[2024-05-04 07:00] LABS: Estimated Average Glucose 123 mg/dL; Hemoglobin A1c % 5.9 % (<6.0)
[2024-05-04 07:04] LABS: Anion Gap 15 (12-20); Blood Urea Nitrogen 30 mg/dL (9-16); Calcium 9.4 mg/dL (8.4-10.2); Carbon Dioxide 19 mmol/L (22-29); Chloride 107 mmol/L (96-108); Creatinine Clr Calc Pharmacy 65.4; Estimated Glomerular Filt Rate > 60; Glucose Random 132 mg/dL (60-115); Potassium 5.2 mmol/L (3.3-5.1); Sodium 136 mmol/L (135-145)
[2024-05-04 07:24] VITALS: BP 113/74; PULSE 71; RESP 18; TEMP 36.7; O2SAT 96
[2024-05-04 07:34] LABS: Glucose, Whole Blood 120 mg/dL (60-115)
--- NOTE | 2024-05-04 08:31 | MHC.CM.PN ---
CM met with Patient at bedside and addressed FRANCISCO with him, providing Patient with the original and a copy has been placed on the chart. Patient lives in a house with his /HCP and per PT, no PT is indicated. Home/self care is the goal and CM has initiated and will follow for dc planning. PCP is Dr. Sarah Peterson.
[2024-05-04] MEDS: Atorvastatin Calcium 40 MG TABLET PO (09:12)
[2024-05-04] MEDS: Aspirin Enteric Coated 81 MG TABLET.DR PO (09:12)
[2024-05-04] MEDS: Insulin Glargine,Hum.rec.anlog 100 UNIT/ML 10 ML VIAL 50 UNIT SUBCUT (09:12)
[2024-05-04] MEDS: 0.9 % Sodium Chloride Flush 3 ML SYRINGE IVFLUSH (09:12)
--- NOTE | 2024-05-04 10:57 | MHC.CM.PN ---
Patient has been medically cleared for dc to home today, self care.
--- NOTE | 2024-05-04 11:08 | PM.DS ---
DS: Providers Provider Date of Service: 05/04/24 Date of admission: 05/03/24 13:26 Date of discharge: 05/04/24 Primary care physician: Sarah Peterson NP Consults: 05/03/24 13:30 Consult to Neurology Routine Consulting Provider: [facility] Reason for consultation: Pt with left-sided deficits, ?TIA vs CVA DS: Diagnosis Discharge Diagnosis (1) Left sided numbness: Status: Acute DS: Summary Hospital Course Hospital Course: 58-year-old male with a PMH significant for?HTN, insulin-dependent type 2 diabetes with neuropathy, known aneurysm, CVA in 2019, hx of diabetic foot ulcers s/p left great toe amputation in 10/2023, and right midfoot fusion who presents to the ED with?intermittent stroke-like symptoms for the past 2 days. Patient reports yesterday morning experienced numbness and tingling in his left arm and leg that lasted less than 30 seconds. In the afternoon symptoms returned and lasted slightly longer, maybe 30-45 seconds. Patient reports he was able to ?walk it off?. Experienced another episode of left-sided numbness and tingling at work this morning at 07:30 that lasted approximately 30 seconds. At 08:30 left-sided numbness and weakness returned and was accompanied by lightheadedness, dizziness, and left-sided weakness and heaviness. Patient called his PCP who told him to come to the ED for further evaluation. Patient denies any other acute medical complaints. No headache or acute vision changes. Denies dysarthria, word finding, or facial droop. Denies chest pain/pressure, palpitations. No shortness a breath or difficulty breathing. Denies fever, chills, nausea, vomiting, abdominal pain. No recent illnesses. In the ED pt's vital signs largely stable and WNL, though with 1 episode of tachypnea of 24 and initially hypertensive at 161/78. Labs were significant for leukocytosis of 15.0, H&H 11.6/34.1, potassium 5.3, BUN 35, creatinine 1.71, and mildly elevated cholesterol levels. CT?of head an area of decreased attenuation involving the anterior limb of the right internal capsule could represent an acute infarction, but no intracranial hemorrhage. Also noted that it was difficult to exclude any small left pontine infarction. 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 EKG demonstrated sinus rhythm with first-degree AV block without evidence of significant ST elevations or depressions. Pt was treated with 1 L IVF and aspirin. Pt will be admitted to the hospital for treatment and further evaluation of intermittent left-sided deficits concerning for TIA versus CVA. Hospital Course Admitted to telemetry where monitor failed to demonstrate acute dysrhythmias. MRI done in found to have no evidence of acute territorial infarct or hemorrhage. Seen by Neurology who recommended aspirin and continued tight glucose control. At this point in time patient is anxious for discharge in his me medically stable for same. Lipitor 40 mg daily has been added to his regimen along with aspirin 81 mg daily. Time Attestation Discharge Coordination Time (in mins): 35 Quality: Safe Use of Opioids Does Pt have an Active Cancer Diagnosis on the Problem List?: No Quality: Stroke Does the patient have a stroke diagnosis?: No Physical Exam Vital Signs: Vital Signs: Last Vital Signs Temp 98.0 F 05/04/24 07:24 Pulse 71 05/04/24 07:24 Resp 18 05/04/24 07:24 BP 113/74 05/04/24 07:24 Pulse Ox 96 05/04/24 07:24 O2 Del Method Room Air 05/04/24 07:24 BMI result Body Mass Index 35.1 Const: Other: Awake alert no acute distress Resp: Other: Clear to auscultation bilaterally no rales rhonchi or wheezes Cardio: Other: No S4; positive S1-S2; no S3 murmurs rubs or gallops GI: Other: Soft nontender nondistended normoactive bowel sounds Neuro: Other: Cranial nerves 2-12 grossly intact as tested. Motor is 5/5 all extremities. Sensation is intact. Cognition appropriate. Gait steady Extrem: Other: No edema bilaterally DS: Data Data Completed and Pending Labs on day of discharge: Laboratory Results - last 24 hr 05/03/24 05/03/24 05/03/24 10:47 17:03 19:51 WBC RBC Hgb Hct MCV MCH MCHC RDW Plt Count MPV Absolute Nucleated RBC Nucleated RBC % (auto) Whole Blood PT 12.8 Whole Blood INR 1.1 Sodium Potassium Chloride Carbon Dioxide Anion Gap BUN Creatinine Estim Creat Clear Calc Estimated GFR POC Glucose 116 H 99 Random Glucose Estimat Average Glucose Hemoglobin A1c % Calcium 07/25/24 07/25/24 06:21 07:26 WBC 10.1 RBC 4.26 L Hgb 11.3 L Hct 34.7 L MCV 81.5 MCH 26.5 L MCHC 32.6 RDW 15.3 Plt Count 329 MPV 9.5 Absolute Nucleated RBC 0.000 Nucleated RBC % (auto) 0.0 Whole Blood PT Whole Blood INR Sodium 136 Potassium 5.2 H Chloride 107 Carbon Dioxide 19 L Anion Gap 15 BUN 30 H Creatinine 1.22 Estim Creat Clear Calc 65.4 Estimated GFR > 60 POC Glucose 120 H Random Glucose 132 H Estimat Average Glucose 123 Hemoglobin A1c % 5.9 Calcium 9.4 Discharge Plan Discharge Anticipated Discharge Date/Time: 05/04/24 10:46 Patient Disposition: Home, Self-Care Discharge Diagnosis: TIA Referrals: Sarah Peterson, [employer] [Primary Care Provider] - 1 Week Discharge Medications: New atorvastatin 40 mg Tablet 40 mg PO DAILY Qty: 30 0RF aspirin 81 mg Tablet,Delayed Release (Dr/Ec) 81 mg PO DAILY Qty: 30 0RF Continued amlodipine 10 mg tablet 10 mg PO DAILY lisinopril 30 mg tablet 30 mg PO DAILY omeprazole 20 mg capsule,delayed release(DR/EC) 20 mg PO DAILY@0630 hydrochlorothiazide 25 mg tablet 25 mg PO DAILY metoprolol succinate 25 mg tablet extended release 24 hr 25 mg PO DAILY spironolactone 50 mg tablet 50 mg PO DAILY Trulicity 1.5 mg/0.5 mL pen injector 1.5 mg subcut SA insulin glargine-yfgn [Semglee(insulin glarg-yfgn)Pen] 100 unit/mL (3 mL) insulin pen 71 unit subcut BEDTIME metformin 850 mg tablet 850 mg PO BID Discharge Orders: Discharge Order (Routine); Ordered 05/04/24 Ordered By: Too Thompson Diet: Advance to usual diet Activity on Discharge: As tolerated Stand Alone Forms: Patient Portal Discharge page, Work/School Release Print Language: Setswana Care Plan Goals: Lipitor 40 mg daily has been added to your regimen along with aspirin 81 mg daily. Take these along with all the meds of taken before the hospital Health Concerns: Continue to watch his sugars closely and follow-up with your PCP as scheduled Plan of Treatment: Return if symptoms return and/or worse Assessment: See discharge summary
[2024-05-04 11:11] VITALS: BP 129/75; PULSE 71; RESP 18; TEMP 36.6; O2SAT 100
[2024-05-04 11:22] LABS: Glucose, Whole Blood 119 mg/dL (60-115)
== END 2024-05-04 11:34 | disposition home or self-care (01) ==
LOC: HO.ED 12:00 → HO.EDOVER 13:47 → HO.IMC 14:24
PROVIDERS: Admitting Provider Student in an Organized Health Care Education/Training Program; Emergency Provider Emergency Medicine Emergency Medical Services; PCP Nurse Practitioner Family; Visit Provider Hospitalist
DX: G45.9 Transient cerebral ischemic attack, unspecified (principal); R20.0 Anesthesia of skin; R20.2 Paresthesia of skin; I10 Essential (primary) hypertension; E11.40 Type 2 diabetes mellitus with diabetic neuropathy, unspecified; R53.1 Weakness; Z79.4 Long term (current) use of insulin; Z89.412 Acquired absence of left great toe; Z86.73 Personal history of transient ischemic attack (TIA), and cerebral infarction without residual deficits; I44.0 Atrioventricular block, first degree; Z79.899 Other long term (current) drug therapy
CPT/HCPCS: 36415; 70450; 70496; 70498; 70551; 80048; 80061; 80076; 80307; 82947; 83036; 84484; 85025; 85027; 85610; 85730; 93005; 93306; 96361; 96372; 96374; 97161; 97165; 99222; 99285; J1650; J2060; Q9957; Q9967

== ENCOUNTER → 2024-05-03 10:20 | Outpatient (BNV) | payer BC, SELFPAY | PROVIDERS: Emergency Provider Emergency Medicine Emergency Medical Services; PCP Nurse Practitioner Family; Visit Provider Internal Medicine | DX: G45.9 Transient cerebral ischemic attack, unspecified (principal) | CPT/HCPCS: 93010; 93306 ==

== ENCOUNTER → 2024-05-03 13:26 | Outpatient (BNV) | payer BC, SELFPAY | PROVIDERS: Admitting Provider Student in an Organized Health Care Education/Training Program; Emergency Provider Emergency Medicine Emergency Medical Services; PCP Nurse Practitioner Family; Visit Provider Student in an Organized Health Care Education/Training Program | DX: R20.0 Anesthesia of skin (principal) | CPT/HCPCS: 99222; 99239 ==

== ENCOUNTER → 2024-05-03 13:26 | Outpatient (BNV) | payer BC, SELFPAY | PROVIDERS: Admitting Provider Student in an Organized Health Care Education/Training Program; Emergency Provider Emergency Medicine Emergency Medical Services; PCP Nurse Practitioner Family; Visit Provider Psychiatry & Neurology Neurology | DX: G81.94 Hemiplegia, unspecified affecting left nondominant side (principal) | CPT/HCPCS: 99222 ==